=== PATIENT | female | born 1985 | race Caucasian/White ===

== ENCOUNTER 2022-04-19 21:33 | Emergency (ER) | payer OTHER ==
[~2022-04-19] VITALS: Ht 172.7 cm; Wt 72.6 kg
[~2022-04-19 21:33] MED LIST: ALBU90OI INH; CEPH500 PO; CYCL10 PO; DAYQUIL; HYDACE5 PO; MEDR10 PO; META800 PO; MULVITMINE PO; NAPR500 PO; NYQUIL; OXYACE5T PO; RXHYDACE PO; RXNAPNA550 PO; SULTRIDS PO; Ultram50 MG PO; Veetids 500500 MG PO
[2022-04-19] MEDS ORDERED: Robaxin750 MG PO (23:44)
== END 2022-04-20 02:15 | disposition home or self-care (01) ==
LOC: ER 21:33
DX: S16.1XXA Strain of muscle, fascia and tendon at neck level, initial encounter (principal); S39.012A Strain of muscle, fascia and tendon of lower back, initial encounter; F17.210 Nicotine dependence, cigarettes, uncomplicated; V48.6XXA Car passenger injured in noncollision transport accident in traffic accident, initial encounter
CPT/HCPCS: 72040; 72070; 72100; 93005; 93010; A9270; J1885